=== PATIENT | female | born 1970 | race Caucasian/White ===

== ENCOUNTER 2019-01-09 23:16 | Emergency (ER) | payer MEDICARE, MEDICAID ==
[~2019-01-09] VITALS: Ht 167.6 cm; Wt 84.1 kg
[~2019-01-09 23:16] MED LIST: HYDR1TAB PO; ZOF4T PO
[2019-01-09 23:17] VITALS: BP 170/111
== END 2019-01-10 00:42 | disposition home or self-care (01) ==
LOC: ER 23:17
DX: T63.441A Toxic effect of venom of bees, accidental (unintentional), initial encounter (principal); M79.674 Pain in right toe(s); J45.909 Unspecified asthma, uncomplicated; F10.99 Alcohol use, unspecified with unspecified alcohol-induced disorder; Z98.890 Other specified postprocedural states; Z79.899 Other long term (current) drug therapy; Y90.9 Presence of alcohol in blood, level not specified; Y92.89 Other specified places as the place of occurrence of the external cause
CPT/HCPCS: 99283

== ENCOUNTER 2021-04-19 07:19 | Emergency (ER) | payer BC, MEDICAID ==
[~2021-04-19] VITALS: Ht 167.6 cm; Wt 100.0 kg
[2021-04-19 08:09] VITALS: BP 132/83
[2021-04-19] MEDS ORDERED: SULF1TAB49 PO (09:43)
[2021-04-19] MEDS ORDERED: CEPH-585 PO (09:43)
== END 2021-04-19 09:55 | disposition home or self-care (01) ==
LOC: ER 07:19
DX: L03.116 Cellulitis of left lower limb (principal); J45.909 Unspecified asthma, uncomplicated; Z79.899 Other long term (current) drug therapy
CPT/HCPCS: 99283

== ENCOUNTER 2021-04-22 23:24 | Emergency (ER) | payer BC, MEDICAID ==
[~2021-04-22] VITALS: Ht 167.6 cm; Wt 100.0 kg
[~2021-04-22 23:24] MED LIST changes: +CEPH-585 PO; +SULF1TAB49 PO
[2021-04-23] MEDS ORDERED: vancomycin/NS 1 GM ADD-VANTAGE 250 ML IV ONE (00:05)
[2021-04-23] MEDS ORDERED: cefepime 1GM/NS ADD-VANTAGE 100 ML IV ONE (00:05)
[2021-04-23] MEDS ORDERED: cefepime 1GM in D5W 50mL 50 ML IV ONE (00:09)
[2021-04-23 00:22] LABS: BASOPHILS # (AUTO) 0.1 X10'3 (0-0.2); EOSINOPHILS # (AUTO) 0.2 X10'3 (0-0.9); EOSINOPHILS % (AUTO) 1.6 % (0-6); HEMATOCRIT 38.8 % (35.0-45.0); HEMOGLOBIN 13.2 g/dl (12.0-16.0); LYMPHOCYTES # (AUTO) 2.9 X10'3 (1.1-4.8); LYMPHOCYTES % (AUTO) 25.7 % (21-51); MEAN CORPUSCULAR HEMOGLOBIN 28.3 PG (27.0-31.0); MEAN CORPUSCULAR HGB CONC 34.1 g/dL (33.0-36.5); MEAN PLATELET VOLUME 8.3 FL (7.4-10.4); MONOCYTES % (AUTO) 8.8 % (2-12); NEUTROPHILS # (AUTO) 7.1 X10'3 (1.8-7.7); NEUTROPHILS % (AUTO) 62.9 % (42-75); PLATELET COUNT 370 X10'3 (140-440); RED BLOOD COUNT 4.67 X10'6 (4.20-5.60); RED CELL DISTRIBUTION WIDTH 13.3 % (11.5-14.5); WHITE BLOOD COUNT 11.3 X10'3 (4.5-11.0)
[2021-04-23 00:30] LABS: ALBUMIN 3.3 G/DL (3.4-5.0); ANION GAP 11 (8-16); BLOOD UREA NITROGEN 19 MG/DL (7-18); BUN/CREATININE RATIO 19.6 (6.6-38.0); CALCIUM 9.1 MG/DL (8.5-10.1); CHLORIDE 106 MMOL/L (99-107); CREATININE 0.97 MG/DL (0.40-0.90); GLUCOSE 123 MG/DL (70-104); POTASSIUM 4.1 MMOL/L (3.5-5.1); SODIUM 141 MMOL/L (135-145); TOTAL CARBON DIOXIDE 24.2 MMOL/L (24-32); eGFR 61 ML/MIN
[2021-04-23] MEDS ORDERED: LEVO25TA7 PO (01:13)
[2021-04-23] MEDS ORDERED: CLIN300C54 PO (01:21)
[2021-04-23 02:51] VITALS: BP 148/63
== END 2021-04-23 02:52 | disposition home or self-care (01) ==
LOC: ER 23:25
DX: L03.116 Cellulitis of left lower limb (principal); R51.9 Headache, unspecified; R11.0 Nausea; M25.562 Pain in left knee; R05.9 Cough, unspecified; R06.02 Shortness of breath
CPT/HCPCS: 36415; 80048; 83605; 85025; 96365; 96368; 99284; J0692; J3370